=== PATIENT | female | born 1940 ===

== ENCOUNTER 2022-11-18 08:00 | Inpatient (IN) | payer OTHER ==
[~2022-11-18] VITALS: Ht 154.9 cm; Wt 80.7 kg
[2022-11-18] MEDS ORDERED: WELLBUTRIN XL300 MG PO (11:56)
[2022-11-18] MEDS ORDERED: ARICEPT5 MG PO (11:57)
[2022-11-18] MEDS ORDERED: CLONAZEPAM2 MG PO (11:57)
[2022-11-18] MEDS ORDERED: FAMOTIDINE40 MG PO (11:57)
[2022-11-18] MEDS ORDERED: XYZAL5 MG PO (11:58)
[2022-11-18] MEDS ORDERED: ZESTRIL10 M1 PO (11:58)
[2022-11-18] MEDS ORDERED: FLUOXETINE HCL20 MG PO (11:58)
[2022-11-18] MEDS ORDERED: LYRICA50 MG PO (11:58)
[2022-11-18] MEDS ORDERED: ZOCOR40 MG PO (11:59)
[2022-11-18] MEDS ORDERED: SYNTHROID88 MCG PO (11:59)
[2022-11-18] MEDS ORDERED: PROTONIX40 MG PO (11:59)
[2022-11-18] MEDS ORDERED: CARAFATE1 GM PO (12:00)
[2022-11-18] MEDS ORDERED: DETROL LA4 MG PO (12:00)
[2022-11-18] MEDS ORDERED: FINACEA50 GM (12:00)
[2022-11-24] MEDS ORDERED: COLACE100 MG PO (07:20)
[2022-11-24] MEDS ORDERED: CARAFATE1 GM/10 ML PO (07:26)
[2022-11-24] MEDS ORDERED: ZOFRAN8 MG PO (07:26)
[2022-11-24] MEDS ORDERED: PERCOCET 5-3251 EACH PO (07:26)
[2022-11-24] MEDS ORDERED: MEDROLPACK PO (07:26)
[2022-11-24] MEDS ORDERED: ACETAMINOPHEN-1 EAC2 PO (07:26)
[2022-11-24] MEDS ORDERED: AMOX-CLAV 875-1 EACH PO (07:26)
[2022-11-24] MEDS ORDERED: DULOXETINE HCL20 MG (08:19)
[2022-11-24] MEDS ORDERED: PREGABALIN75 MG (08:19)
[2022-11-24] MEDS ORDERED: AZELASTINE137 MCG/0. (08:19)
[2022-11-24] MEDS ORDERED: FLONASE16 GM (08:19)
== END 2022-11-26 10:23 | disposition home or self-care (01) | DRG 455 ==
LOC: EDSTATUS 08:00 → ADM 08:00 → O/R 11-24 04:44 → SURG 11-24 07:00 → SURH 11-25 18:07
PROVIDERS: ADMIT Orthopaedic Surgery Orthopaedic Surgery of the Spine; ATTEND Orthopaedic Surgery Orthopaedic Surgery of the Spine
PROC: 0SG0071 Fusion of Lumbar Vertebral Joint with Autologous Tissue Substitute, Posterior Approach, Posterior Column, Open Approach (ICD-10-PCS; 2022-11-24)
PROC: 0ST20ZZ Resection of Lumbar Vertebral Disc, Open Approach (ICD-10-PCS; 2022-11-24)
PROC: 0QB30ZZ Excision of Left Pelvic Bone, Open Approach (ICD-10-PCS; 2022-11-24)
PROC: 07DR0ZZ Extraction of Iliac Bone Marrow, Open Approach (ICD-10-PCS; 2022-11-24)
PROC: 4A12X4Z Monitoring of Cardiac Electrical Activity, External Approach (ICD-10-PCS; 2022-11-24)
PROC: XRGB0R7 Fusion of Lumbar Vertebral Joint using Custom-Made Anatomically Designed Interbody Fusion Device, Open Approach, New Technology Group 7 (ICD-10-PCS; principal; 2022-11-24 07:00)
DX: M43.16 Spondylolisthesis, lumbar region (principal); M48.062 Spinal stenosis, lumbar region with neurogenic claudication; I10 Essential (primary) hypertension; E03.9 Hypothyroidism, unspecified; G47.33 Obstructive sleep apnea (adult) (pediatric)

== ENCOUNTER 2022-11-18 08:39 | Outpatient (CLI) | payer OTHER ==
[2022-11-18] MEDS ORDERED: WELLBUTRIN XL300 MG PO (11:56)
[2022-11-18] MEDS ORDERED: CLONAZEPAM2 MG PO (11:57)
[2022-11-18] MEDS ORDERED: FAMOTIDINE40 MG PO (11:57)
[2022-11-18] MEDS ORDERED: ARICEPT5 MG PO (11:57)
[2022-11-18] MEDS ORDERED: ZESTRIL10 M1 PO (11:58)
[2022-11-18] MEDS ORDERED: FLUOXETINE HCL20 MG PO (11:58)
[2022-11-18] MEDS ORDERED: LYRICA50 MG PO (11:58)
[2022-11-18] MEDS ORDERED: XYZAL5 MG PO (11:58)
[2022-11-18] MEDS ORDERED: ZOCOR40 MG PO (11:59)
[2022-11-18] MEDS ORDERED: SYNTHROID88 MCG PO (11:59)
[2022-11-18] MEDS ORDERED: PROTONIX40 MG PO (11:59)
[2022-11-18] MEDS ORDERED: FINACEA50 GM (12:00)
[2022-11-18] MEDS ORDERED: CARAFATE1 GM PO (12:00)
[2022-11-18] MEDS ORDERED: DETROL LA4 MG PO (12:00)
== END 2022-11-18 15:05 | disposition home or self-care (01) ==
LOC: LAB 08:39
PROVIDERS: ATTEND Orthopaedic Surgery Orthopaedic Surgery of the Spine
DX: U07.1 COVID-19 (principal); R07.9 Chest pain, unspecified; D68.9 Coagulation defect, unspecified; D64.9 Anemia, unspecified; E03.9 Hypothyroidism, unspecified